=== PATIENT | male | born 1955 | race African-American/Black ===

== ENCOUNTER 2019-10-16 13:13 | Inpatient (IN) | payer OTHER ==
[2019-10-16 14:42] VITALS: BMI 19.3
--- NOTE | 2019-10-16 18:02 | HP ---
CIWA Score Nausea/Vomitin-No Nausea/No Vomiting Muscle Tremors: 1-None Visible, but [place] Anxiety: 1-Mildly Anxious Agitation: 0-Normal Activity Paroxysmal Sweats: 3 (Increased facial moisture) Orientation: 0-Oriented Tacttile Disturbances: 0-None Auditory Disturbances: 0-None Visual Disturbances: 0-None Headache: 0-None Present CIWA-Ar Total Score: 5 - Admission Criteria OASAS Guidelines: Admission for Medically Managed Detox: Requires at least one of the followin. CIWA greater than 12 2. Seizures within the past 24 hours 3. Delirium tremens within the past 24 hours 4. Hallucinations within the past 24 hours 5. Acute intervention needed for co occurring medical disorder 6. Acute intervention needed for co occurring psychiatric disorder 7. Severe withdrawal that cannot be handled at a lower level of care (continued vomiting, continued diarrhea, abnormal vital signs) requiring intravenous medication and/or fluids 8. Patient presents the following: Seizures, delirium tremens or hallucinations in the past 12 hours (Seen on 10/15/19 in [facility] ED for seizures.) Admission Criteria Met: Admission criteria met Admission ROS S - [facility] Chief Complaint: I was sent here because I drink alcohol. Allergies/Adverse Reactions: Allergies Allergy/AdvReac Type Severity Reaction Status Date / Time No Known Allergies Allergy Verified 10/16/19 14:36 History of Present Illness: 63 yo presents w/ hx alcohol use disorder for detox after being treated at [facility] for seizures. No hx 'regular falling' when sober. States falls when drink. Alcohol use began at age 18. Drinks daily. Drinks 2-4 Nips vodka and 2-3 24 oz beers. States "Starts getting sick and disoriented and an attitude change" when goes for 1 day w/o drinking. Last drink 10/15/19. Nicotine use began at age 15. Currently smokes 1/2 - 1 PPD. Denies illicit substance use. PCP@ [facility] is Dr. Rasmussen. PMHx: Seizures; Low Blood Pressure. MHHx: Intermittent Depression. Denies thoughts of harming self or others. SHx: Domiciled. Unemployed. Denies legal issues. Search Terms: Marbin Nelson, 1955 Search Date: 10/16/2019 06:02:07 PM The Drug Utilization Report below displays all of the controlled substance prescriptions, if any, that your patient has filled in the last twelve months. The information displayed on this report is compiled from pharmacy submissions to the Department, and accurately reflects the information as submitted by the pharmacies. This report was requested by: Enriqueta Duarte | Reference #: [id number] There are no results for the search terms that you entered. Exam Limitations: No Limitations - Ebola screening Have you traveled outside of the country in the last 21 days: No Have you had contact with anyone from an Ebola affected area: No Have you been sick,other than usual withdrawal symptoms: No Do you have a fever: No - Review of Systems Constitutional: Chills, Changes in sleep (Difficulty falling asleep), Weight Stable EENT: reports: Blurred Vision Respiratory: reports: No Symptoms reported Cardiac: reports: No Symptoms Reported GI: reports: Diarrhea (soft, watery light brown yesterday x 2.) : reports: No Symptoms Reported Musculoskeletal: reports: Joint Swelling (Achy knee and leg pain. Legs don't feel steady) Integumentary: reports: No Symptoms Reported Neuro: reports: Seizure (Since age 25. Has an aura when immediately about to have a seizure.), Tremors Endocrine: reports: Increased Thirst Hematology: reports: Anemia ("Thin blood") Psychiatric: reports: Judgement Intact, Orientated x3, Anxious, Depressed ( Denies thoughts of harming self or others.) Patient History - PPD History Previous Implant?: Yes Documented Results: Negative w/o proof Implanted On Prior [facility] Admission?: No PPD to be Administered?: Yes - Smoking Cessation Smoking history: Current every day smoker Have you smoked in the past 12 months: Yes Aproximately how many cigarettes per day: 10 Hx Chewing Tobacco Use: No Initiated information on smoking cessation: Yes 'Breaking Loose' booklet given: 10/16/19 - Substance & Tx. History Hx Alcohol Use: Yes Hx Substance Use: Yes Substance Use Type: Alcohol Hx Substance Use Treatment: No - Substances abused Alcohol Substance route: Oral Frequency: Daily Amount used: 2-3 NIPS OF VODKA, 3 (24 ounces) cans of beer Age of first use: 18 Date of last use: 10/15/19 Admission Physical Exam BHS - Vital Signs Vital Signs: Vital Signs - 24 hr 10/16/19 14:31 Temperature 98.1 F Pulse Rate 79 Respiratory 18 Rate Blood Pressure 125/67 - Physical General Appearance: Yes: No Apparent Distress, Thin, Sweating (Increased facial moisture) HEENTM: Yes: EOMI, Hearing grossly Normal, Normocephalic, Normal Voice, MARYLU, Pharynx Normal, Other (Dry lips and mucous membranes) Respiratory: Yes: Lungs Clear, Normal Breath Sounds, No Respiratory Distress Neck: Yes: No masses,lesions,Nodules, Supple Breast: Yes: Breast Exam Deferred Cardiology: Yes: Regular Rhythm, Regular Rate, S1, S2 Abdominal: Yes: Normal Bowel Sounds, Non Tender, Flat, Soft Genitourinary: Yes: Within Normal Limits Back: Yes: Normal Inspection Musculoskeletal: Yes: full range of Motion, Joint Stiffness (@ knees. 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 intact, Fully Oriented, Alert, Motor Strength 5/5 Integumentary: Yes: Normal Color, Dry (Very dry skin), Warm, Other (Increased facial moisture) Lymphatic: Yes: Within Normal Limits Cleared for Admission S - Detox or Rehab [facility] Level of Care: Medically Managed Detox Regimen/Protocol: Valium Claeared for Rehab Admission: No Breathalyzer - Breathalyzer Breathalyzer: 0 Urine Drug Screen - Test Device Lot number: [id number] Expiration date: 06/10/21 - Control Is test valid?: Yes - Results Drug screen NEGATIVE: No Urine drug screen results: BAR-Barbiturates Inpatient Rehab Admission - Rehab Decision to Admit Inpatient rehab admission?: No
[2019-10-16] MEDS ORDERED: diazePAM 5 MG TABLET PO PRN ×2 (18:26→18:45)
[2019-10-16] MEDS ORDERED: diazePAM 5 MG TABLET PO ONE ×2 (18:26→18:46)
[2019-10-16] MEDS ORDERED: MAGNESIUM HYDROX 2400MG/30ML ORAL SUSPENSION 30 ML CUP PO PRN (18:27)
[2019-10-16] MEDS ORDERED: MAGNESIUM CITRATE 300 ML BOTTLE PO PRN (18:27)
[2019-10-16] MEDS ORDERED: IBUPROFEN 400 MG TABLET (FP) PO PRN (18:27)
[2019-10-16] MEDS ORDERED: ACETAMINOPHEN 325 MG TABLET (FP) PO PRN ×2 (18:27)
[2019-10-16] MEDS ORDERED: MAG HYDROX/AL HYDROX/SIMETH 30 ML UNIT-DOSE CUP PO PRN (18:27)
[2019-10-16] MEDS ORDERED: MELATONIN 5 MG TABLETS PO PRN (18:27)
[2019-10-16] MEDS ORDERED: BISMUTH SUBSALICYLATE 524 MG/30 ML UD PO PRN (18:27)
[2019-10-16] MEDS ORDERED: NICOTINE POLACRILEX 2 MG GUM BUC PRN (18:27)
[2019-10-16] MEDS ORDERED: MENTHOL/PHENOL 1 EACH UD MM PRN (18:27)
[2019-10-16] MEDS: diazePAM 5 MG TABLET PO SCH (22:25)
[2019-10-16] MEDS: THIAMINE HCL 100 MG TABLET (FP) PO SCH (22:25)
[2019-10-17] MEDS: diazePAM 5 MG TABLET PO SCH ×3 (06:54→22:41)
[2019-10-17] MEDS: levETIRAcetam 500 MG TABLET (FP) PO SCH (10:19)
[2019-10-17] MEDS: PRENATAL VITAMINS W/ FOLIC ACID TABLET (FP) PO SCH (10:19)
[2019-10-17] MEDS: PHENYTOIN NA EXTENDED 100 MG CAPSULE (FP) PO SCH (10:19)
[2019-10-17] MEDS: NICOTINE 14 MG/24 HOURS TOPICAL PATCH TD SCH (10:19)
[2019-10-17 10:55] LABS: ALBUMIN 3.5 g/dl (3.4-5.0); BILIRUBIN,TOTAL 0.4 mg/dL (0.2-1); BLOOD UREA NITROGEN 5.2 mg/dL (7-18); CALCIUM 8.7 mg/dL (8.5-10.1); CREATININE 0.7 mg/dL (0.55-1.3); POTASSIUM 4.1 mmol/L (3.5-5.1); TOT PROT 6.7 g/dl (6.4-8.2)
[2019-10-17 11:36] LABS: HEMATOCRIT 35.2 % (35.4-49); HEMOGLOBIN 11.8 GM/dL (11.7-16.9); MCH 34.2 pg (25.7-33.7); MCHC 33.6 g/dl (32.0-35.9); MEAN CELL VOLUME 101.9 fl (80-96); MEAN PLT VOLUME 8.3 fl (7.5-11.1); PLATELET COUNT 206 K/MM3 (134-434); RBC 3.45 M/mm3 (4.00-5.60); RDW 13.3 % (11.9-15.9); WHITE BLOOD COUNT 6.4 K/mm3 (4.0-10.0)
[2019-10-17] MEDS ORDERED: PNEUMOC 13-VAL CONJ-DIP CRM/PF 0.5 ML DISP.SYRIN IM ONE (12:00)
[2019-10-17] MEDS ORDERED: FLU VACCINE QUAD 60 MCG/0.5 ML (MDV 19-20) IM ONE (12:00)
--- NOTE | 2019-10-17 15:15 | PN ---
S CIWA - CIWA Score Nausea/Vomitin-No Nausea/No Vomiting Muscle Tremors: 2 Anxiety: 1-Mildly Anxious Agitation: 0-Normal Activity Paroxysmal Sweats: No Perspiration Orientation: 0-Oriented Tacttile Disturbances: 0-None Auditory Disturbances: 1-Very Mild Visual Disturbances: 2-Mild Sensitivity Headache: 0-None Present CIWA-Ar Total Score: 6 BHS Progress Note (SOAP) Subjective: Sweating, Tremors. Appetite slowly improving since time of admission. Objective: PATIENT A & O X 3. IN NO ACUTE DISTRESS. 10/17/19 15:16 Vital Signs Temperature 98.2 F 10/17/19 13:26 Pulse Rate 95 H 10/17/19 13:26 Respiratory Rate 18 10/17/19 13:26 Blood Pressure 129/74 10/17/19 13:26 O2 Sat by Pulse Oximetry (%) Laboratory Tests 10/17/19 10/17/19 10/17/19 07:40 07:40 07:40 WBC 6.4 RBC 3.45 L Hgb 11.8 Hct 35.2 L MCV 101.9 H MCH 34.2 H MCHC 33.6 RDW 13.3 Plt Count 206 MPV 8.3 Sodium 136 Potassium 4.1 Chloride 102 Carbon Dioxide 27 Anion Gap 7 L BUN 5.2 L Creatinine 0.7 Est GFR (CKD-EPI)AfAm 116.40 Est GFR (CKD-EPI)NonAf 100.43 Random Glucose 105 Calcium 8.7 Total Bilirubin 0.4 AST 42 H ALT 24 Alkaline Phosphatase 209 H Total Protein 6.7 Albumin 3.5 Phenytoin 7.9 RPR Titer 10/17/19 07:40 WBC RBC Hgb Hct MCV MCH MCHC RDW Plt Count MPV Sodium Potassium Chloride Carbon Dioxide Anion Gap BUN Creatinine Est GFR (CKD-EPI)AfAm Est GFR (CKD-EPI)NonAf Random Glucose Calcium Total Bilirubin AST ALT Alkaline Phosphatase Total Protein Albumin Phenytoin RPR Titer Nonreactive LABS NOTED. Assessment: 10/17/19 15:16 WITHDRAWAL SYMPTOMS. ANEMIA. ELEVATED AST LEVEL. ELEVATED AP LEVEL. 10/17/19 15:18 Plan: CONTINUE DETOX. PATIENT IS CURRENTLY RECEIVING DAILY MVI CONTAINING B VITAMINS AND IRON WHILE ADMITTED FOR DETOX. REPEAT AP LEVEL ORDERED FOR TOMORROW.
[2019-10-17] MEDS: THIAMINE HCL 100 MG TABLET (FP) PO SCH (22:41)
[2019-10-18] MEDS: diazePAM 5 MG TABLET PO SCH ×2 (05:44→19:04)
[2019-10-18] MEDS: levETIRAcetam 500 MG TABLET (FP) PO SCH (10:10)
[2019-10-18] MEDS: PHENYTOIN NA EXTENDED 100 MG CAPSULE (FP) PO SCH (10:10)
[2019-10-18] MEDS: NICOTINE 14 MG/24 HOURS TOPICAL PATCH TD SCH (10:10)
[2019-10-18] MEDS: PRENATAL VITAMINS W/ FOLIC ACID TABLET (FP) PO SCH (10:10)
--- NOTE | 2019-10-18 13:39 | PN ---
S CIWA - CIWA Score Nausea/Vomitin-No Nausea/No Vomiting Muscle Tremors: None Anxiety: 2 Agitation: 2 Paroxysmal Sweats: No Perspiration Orientation: 0-Oriented Tacttile Disturbances: 0-None Auditory Disturbances: 0-None Visual Disturbances: 0-None Headache: 0-None Present CIWA-Ar Total Score: 4 BHS Progress Note (SOAP) Subjective: Interrupted sleep Objective: 10/18/19 13:39 Last Vital Signs Temp Pulse Resp BP Pulse Ox 98.2 F 100 H 16 112/65 10/18/19 10:00 10/18/19 10:00 10/18/19 10:00 10/18/19 10:00 Laboratory Tests 10/17/19 10/17/19 10/17/19 07:40 07:40 07:40 WBC 6.4 RBC 3.45 L Hgb 11.8 Hct 35.2 L MCV 101.9 H MCH 34.2 H MCHC 33.6 RDW 13.3 Plt Count 206 MPV 8.3 Sodium 136 Potassium 4.1 Chloride 102 Carbon Dioxide 27 Anion Gap 7 L BUN 5.2 L Creatinine 0.7 Est GFR (CKD-EPI)AfAm 116.40 Est GFR (CKD-EPI)NonAf 100.43 Random Glucose 105 Calcium 8.7 Total Bilirubin 0.4 AST 42 H ALT 24 Alkaline Phosphatase 209 H Total Protein 6.7 Albumin 3.5 Phenytoin 7.9 RPR Titer 10/17/19 10/18/19 07:40 07:50 WBC RBC Hgb Hct MCV MCH MCHC RDW Plt Count MPV Sodium Potassium Chloride Carbon Dioxide Anion Gap BUN Creatinine Est GFR (CKD-EPI)AfAm Est GFR (CKD-EPI)NonAf Random Glucose Calcium Total Bilirubin AST ALT Alkaline Phosphatase 182 H Total Protein Albumin Phenytoin RPR Titer Nonreactive Labs reviewed: alk phos 182 >> 209, AST 42 (mildly elevated) Assessment: 10/18/19 13:41 Withdrawal sxs Noted with elevated LFTs Plan: Continue detox Encouraged PO water intake Elevated LFTs (AST, Alk phos): most likely due to chronic alcoholism, alk phos trending downward, encouraged abstinence from substance use, follow up with PCP for monitoring
[2019-10-18] MEDS: THIAMINE HCL 100 MG TABLET (FP) PO SCH (22:33)
[2019-10-19] MEDS ORDERED: diazePAM 5 MG TABLET PO ONE (06:00)
--- NOTE | 2019-10-19 09:19 | DS ---
[facility] Detox Discharge Summary Admission Date: 10/16/19 Discharge Date: 10/19/19 - History Present History: Alcohol Dependence - Physical Exam Results Vital Signs: Vital Signs Temperature 98.2 F 10/19/19 08:18 Pulse Rate 70 10/19/19 08:18 Respiratory Rate 18 10/19/19 08:18 Blood Pressure 119/56 L 10/19/19 08:18 O2 Sat by Pulse Oximetry (%) Pertinent Admission Physical Exam Findings: pt arrived in withdrawals Vital Signs Temperature 98.2 F 10/19/19 08:18 Pulse Rate 70 10/19/19 08:18 Respiratory Rate 18 10/19/19 08:18 Blood Pressure 119/56 L 10/19/19 08:18 O2 Sat by Pulse Oximetry (%) Laboratory Tests 10/17/19 10/17/19 10/17/19 07:40 07:40 07:40 WBC 6.4 RBC 3.45 L Hgb 11.8 Hct 35.2 L MCV 101.9 H MCH 34.2 H MCHC 33.6 RDW 13.3 Plt Count 206 MPV 8.3 Sodium 136 Potassium 4.1 Chloride 102 Carbon Dioxide 27 Anion Gap 7 L BUN 5.2 L Creatinine 0.7 Est GFR (CKD-EPI)AfAm 116.40 Est GFR (CKD-EPI)NonAf 100.43 Random Glucose 105 Calcium 8.7 Total Bilirubin 0.4 AST 42 H ALT 24 Alkaline Phosphatase 209 H Total Protein 6.7 Albumin 3.5 Phenytoin 7.9 RPR Titer 10/17/19 10/18/19 07:40 07:50 WBC RBC Hgb Hct MCV MCH MCHC RDW Plt Count MPV Sodium Potassium Chloride Carbon Dioxide Anion Gap BUN Creatinine Est GFR (CKD-EPI)AfAm Est GFR (CKD-EPI)NonAf Random Glucose Calcium Total Bilirubin AST ALT Alkaline Phosphatase 182 H Total Protein Albumin Phenytoin RPR Titer Nonreactive today pt is aaox3 ambulating no acute distress no s/s of withdrawal - Treatment Hospital Course: Detox Protocol Followed, Detoxed Safely, Responded well, Discharged Condition Good, Rehab Referral Accepted Patient has Accepted a Rehab Referral to: pt referred to inpatient rehab - Medication Discharge Medications: Ambulatory Orders Phenytoin Na Extended [Dilantin -] 300 mg PO DAILY 10/16/19 levETIRAcetam [Keppra -] 500 mg PO DAILY 10/16/19 - Diagnosis (1) Alcohol dependence with withdrawal, uncomplicated Current Visit: Yes Status: Chronic (2) Anemia Current Visit: Yes Status: Chronic (3) Elevated alkaline phosphatase level Current Visit: Yes Status: Acute (4) Elevated aspartate aminotransferase level Current Visit: Yes Status: Acute - AMA Did Patient Leave Against Medical Advice: No
[2019-10-19] MEDS: PRENATAL VITAMINS W/ FOLIC ACID TABLET (FP) PO SCH (10:38)
[2019-10-19] MEDS: levETIRAcetam 500 MG TABLET (FP) PO SCH (10:42)
[2019-10-19] MEDS: PHENYTOIN NA EXTENDED 100 MG CAPSULE (FP) PO SCH (10:42)
[2019-10-19] MEDS: NICOTINE 14 MG/24 HOURS TOPICAL PATCH TD SCH (10:50)
[2019-10-19 17:16] VITALS: BP 120/58; PULSE 77; TEMP 99.1
== END 2019-10-19 19:07 | disposition other institution (70) | DRG 775 ==
LOC: YASAS 13:13 → Y6N 19:01
PROVIDERS: ADMIT Allergy & Immunology; ATTEND Allergy & Immunology
PROC: HZ2ZZZZ Detoxification Services for Substance Abuse Treatment (ICD-10-PCS; principal; 2019-10-16)
DX: F10.230 Alcohol dependence with withdrawal, uncomplicated (principal); F17.210 Nicotine dependence, cigarettes, uncomplicated; G40.909 Epilepsy, unspecified, not intractable, without status epilepticus; D64.9 Anemia, unspecified; L85.3 Xerosis cutis; R94.5 Abnormal results of liver function studies; R26.89 Other abnormalities of gait and mobility; M25.662 Stiffness of left knee, not elsewhere classified; M25.661 Stiffness of right knee, not elsewhere classified
CPT/HCPCS: 36415; 80053; 80177; 80185; 84075; 85027; 86593; 90670; G0008; G0009; Q2036

== ENCOUNTER 2019-10-19 20:08 | Inpatient (IN) | payer OTHER ==
--- NOTE | 2019-10-19 22:32 | HP ---
[facility] Rehab Assess/Revision - Admission History Admitted to Rehab from: [facility] Date of Admission to Rehab: 10/19/2019 - Findings Detox History & Physical reviewed: Yes Concur with findings: Yes Inpatient Rehab Admission - Rehab Decision to Admit Inpatient rehab admission?: Yes - Initial Determination Are CD services needed?: Yes Free of communicable disease: Yes Not in need of hospitalization: Yes - Rehab Admission Criteria Previous failed treatment: Yes Poor recovery environment: Yes Comorbidities: Yes Lacks judgement: No Patient is meeting Inpatient Rehab admission criteria:: Yes
[2019-10-19] MEDS ORDERED: ACETAMINOPHEN 325 MG TABLET (FP) PO PRN (22:33)
[2019-10-19] MEDS ORDERED: P-EPHED 60MG/TRIPROLIDI 2.5MG TABLET PO PRN (22:33)
[2019-10-19] MEDS ORDERED: hydrOXYzine PAMOATE 25 MG CAPSULE (FP) PO PRN (22:33)
[2019-10-19] MEDS ORDERED: MENTHOL/PHENOL 1 EACH UD MM PRN (22:33)
[2019-10-19] MEDS ORDERED: MAGNESIUM CITRATE 300 ML BOTTLE PO PRN (22:33)
[2019-10-19] MEDS ORDERED: IBUPROFEN 400 MG TABLET (FP) PO PRN (22:33)
[2019-10-19] MEDS ORDERED: LOPERAMIDE HCL 2 MG CAPSULE PO PRN (22:33)
[2019-10-19] MEDS ORDERED: MAGNESIUM HYDROX 2400MG/30ML ORAL SUSPENSION 30 ML CUP PO PRN (22:33)
[2019-10-19] MEDS ORDERED: guaiFENesin 200 MG/10 ML 10 ML UNIT-DOSE CUPS PO PRN (22:33)
[2019-10-19] MEDS ORDERED: MAG HYDROX/AL HYDROX/SIMETH 30 ML UNIT-DOSE CUP PO PRN (22:33)
[2019-10-19] MEDS ORDERED: NICOTINE POLACRILEX 2 MG GUM BUC PRN (22:33)
[2019-10-20] MEDS: PHENYTOIN NA EXTENDED 100 MG CAPSULE (FP) PO SCH (10:42)
[2019-10-20] MEDS: PRENATAL VITAMINS W/ FOLIC ACID TABLET (FP) PO SCH (10:42)
[2019-10-20] MEDS: levETIRAcetam 500 MG TABLET (FP) PO SCH (10:42)
[2019-10-20] MEDS: NICOTINE 14 MG/24 HOURS TOPICAL PATCH TD SCH (10:43)
--- NOTE | 2019-10-20 13:13 | PN ---
[facility] Progress Note Note: Pt is a 63 y/o male with a hx of alcohol and crack dependence admitted to rehab from [address] [place] [address] yesterday. PMHx;Seizure disorder,Hypotension,Anemia,and uses cane for ambulation. Ppsych Hx:Denies Pt reports he has primary care with Dr. Weems at [facility]. Vital Signs - 24 hr 10/19/19 10/19/19 10/20/19 20:30 22:00 01:12 Temperature 98.1 F 97.8 F Pulse Rate 71 78 Respiratory 16 16 18 Rate Blood Pressure 117/75 123/79 10/20/19 10/20/19 03:30 07:54 Temperature 97.6 F Pulse Rate 76 Respiratory 18 18 Rate Blood Pressure 126/74 Alert o x 3 nad oob ambulating with cane visibly on the unit. Repeat EKG(orderd from detox unit) sinus Bradycardia HR=58 otherwise Normal ECG A/P New rehab pt s/p detox maintain safety increase po fluids seizure precautions
--- NOTE | 2019-10-20 14:30 | EKG ---
Test Reason : Blood Pressure : / mmHG Vent. Rate : 058 BPM Atrial Rate : 058 BPM P-R Int : 186 ms QRS Dur : 084 ms QT Int : 404 ms P-R-T Axes : 078 066 077 degrees QTc Int : 396 ms SINUS BRADYCARDIA OTHERWISE NORMAL ECG NO PREVIOUS ECGS AVAILABLE Confirmed by MD Alpesh, Ferny ([id number]) on 10/20/2019 2:30:16 PM Referred By: EFRA Confirmed By:Ferny Betts MD
[2019-10-20] MEDS: MELATONIN 5 MG TABLETS PO PRN (21:49)
[2019-10-20] MEDS: THIAMINE HCL 100 MG TABLET (FP) PO SCH (21:49)
[2019-10-21] MEDS: levETIRAcetam 500 MG TABLET (FP) PO SCH (10:14)
[2019-10-21] MEDS: NICOTINE 14 MG/24 HOURS TOPICAL PATCH TD SCH (10:14)
[2019-10-21] MEDS: PHENYTOIN NA EXTENDED 100 MG CAPSULE (FP) PO SCH (10:14)
[2019-10-21] MEDS: PRENATAL VITAMINS W/ FOLIC ACID TABLET (FP) PO SCH (10:14)
[2019-10-21] MEDS: MELATONIN 5 MG TABLETS PO PRN (21:49)
[2019-10-21] MEDS: THIAMINE HCL 100 MG TABLET (FP) PO SCH (21:49)
[2019-10-22] MEDS: PHENYTOIN NA EXTENDED 100 MG CAPSULE (FP) PO SCH (11:13)
[2019-10-22] MEDS: levETIRAcetam 500 MG TABLET (FP) PO SCH (11:13)
[2019-10-22] MEDS: PRENATAL VITAMINS W/ FOLIC ACID TABLET (FP) PO SCH (11:13)
[2019-10-22] MEDS: NICOTINE 14 MG/24 HOURS TOPICAL PATCH TD SCH (11:13)
[2019-10-22] MEDS: MELATONIN 5 MG TABLETS PO PRN (21:20)
[2019-10-22] MEDS: THIAMINE HCL 100 MG TABLET (FP) PO SCH (21:20)
[2019-10-23] MEDS: PRENATAL VITAMINS W/ FOLIC ACID TABLET (FP) PO SCH (10:45)
[2019-10-23] MEDS: levETIRAcetam 500 MG TABLET (FP) PO SCH (10:45)
[2019-10-23] MEDS: NICOTINE 14 MG/24 HOURS TOPICAL PATCH TD SCH (10:45)
[2019-10-23] MEDS: PHENYTOIN NA EXTENDED 100 MG CAPSULE (FP) PO SCH (10:45)
[2019-10-23 12:40] LABS: HEMATOCRIT 36.7 % (35.4-49); HEMOGLOBIN 12.5 GM/dL (11.7-16.9); MCH 34.2 pg (25.7-33.7); MCHC 34.1 g/dl (32.0-35.9); MEAN CELL VOLUME 100.4 fl (80-96); PLATELET COUNT 266 K/MM3 (134-434); RBC 3.66 M/mm3 (4.00-5.60); RDW 13.8 % (11.9-15.9); WHITE BLOOD COUNT 6.1 K/mm3 (4.0-10.0)
[2019-10-23 12:46] LABS: BILIRUBIN,TOTAL 0.3 mg/dL (0.2-1); BLOOD UREA NITROGEN 7.9 mg/dL (7-18); CALCIUM 9.2 mg/dL (8.5-10.1); CREATININE 0.7 mg/dL (0.55-1.3); POTASSIUM 4.1 mmol/L (3.5-5.1); TOT PROT 7.7 g/dl (6.4-8.2)
[2019-10-23] MEDS: MELATONIN 5 MG TABLETS PO PRN (21:07)
[2019-10-23] MEDS: THIAMINE HCL 100 MG TABLET (FP) PO SCH (21:07)
[2019-10-24] MEDS: PHENYTOIN NA EXTENDED 100 MG CAPSULE (FP) PO SCH (10:12)
[2019-10-24] MEDS: PRENATAL VITAMINS W/ FOLIC ACID TABLET (FP) PO SCH (10:12)
[2019-10-24] MEDS: NICOTINE 14 MG/24 HOURS TOPICAL PATCH TD SCH (10:13)
[2019-10-24] MEDS: levETIRAcetam 500 MG TABLET (FP) PO SCH (10:13)
[2019-10-24] MEDS: THIAMINE HCL 100 MG TABLET (FP) PO SCH (23:22)
[2019-10-25] MEDS: levETIRAcetam 500 MG TABLET (FP) PO SCH (10:19)
[2019-10-25] MEDS: PHENYTOIN NA EXTENDED 100 MG CAPSULE (FP) PO SCH (10:19)
[2019-10-25] MEDS: NICOTINE 14 MG/24 HOURS TOPICAL PATCH TD SCH (10:19)
[2019-10-25] MEDS: PRENATAL VITAMINS W/ FOLIC ACID TABLET (FP) PO SCH (10:19)
[2019-10-25] MEDS: THIAMINE HCL 100 MG TABLET (FP) PO SCH (21:51)
[2019-10-25] MEDS: MELATONIN 5 MG TABLETS PO PRN (21:51)
[2019-10-26] MEDS: levETIRAcetam 500 MG TABLET (FP) PO SCH (10:23)
[2019-10-26] MEDS: PHENYTOIN NA EXTENDED 100 MG CAPSULE (FP) PO SCH (10:23)
[2019-10-26] MEDS: PRENATAL VITAMINS W/ FOLIC ACID TABLET (FP) PO SCH (10:23)
[2019-10-26] MEDS: NICOTINE 14 MG/24 HOURS TOPICAL PATCH TD SCH (10:23)
[2019-10-26] MEDS: THIAMINE HCL 100 MG TABLET (FP) PO SCH (21:47)
[2019-10-26] MEDS: MELATONIN 5 MG TABLETS PO PRN (21:47)
--- NOTE | 2019-10-27 00:28 | PN ---
[facility] Progress Note Note: Patient had a seizure that was witnessed by a staff, Ms. Rossana Foley. She reports that the seizure was tonic- clonic which lasted about 3-5 minutes with patient biting his tongue. Patient has medical history of seizures and was admitted to [facility] for seizures prior to his admission. He is on Dilantin and Levetiracetam with levels at Dilantin 7.9 and Levetiracetam 5.7 mcg /ML on 10/17/2019. Patient is to be transferred to emergency room for further evauation. Endorsed to Dr. Natty Hernandez Vital Signs - 24 hr 10/27/19 10/27/19 10/27/19 00:05 00:10 00:25 Pulse Rate 92 H 87 83 Respiratory 16 16 16 Rate Blood Pressure 162/96 104/74 133/67 General Appearance: Somnolence, Apparent Distress. . HEENT: Norphocephalic, no lesion noted. Eyelids closed tightly. Nasal congestion, hearing normal. Tongue bite with bleeding noted Neck: Supple. No clear JVD. No bruits heard bilaterally Respiratory/Chest: Lungs Clear, Normal Breath Sounds. Respiratory Distress, Crackles, Rales, Rhonchi, Stridor, Wheezing Cardiovascular: Regular Rhythm, Regular Rate, S1, S2. Gastrointestinal/Abdominal: Normal Bowel Sounds with mild abdominal distention Extremity: Normal Capillary Refill Integumentary: Dry skin with Rash Neurologic: Disoriented and lethargic Action: Transfer patient to ER for further evaluation and treatment
--- NOTE | 2019-10-27 09:50 | PN ---
[facility] Progress Note Note: Pt was seen at the [facility] ER for Seizure episode last night and discharged this morning. Pt arrived back to [address] [place] [address] at about 9:05 A.M to continue rehab. Alert o x 3. Ambulating with steady gait. Communicating coherently and in good spirit. On review of Emergency room discharge papers, it was recommended for patient to: Patient Discharge Instructions Patient Printed Discharge Instructions: DI for Seizure Disorder -- Adult Additional Instructions: You were seen for seizure. Your labs did not show anything concerning. Your Dilantin drug level is low. You were loaded with your seizure medication Take 300mg of Dilantin at 8am and 300mg at 10am today. Start taking your regular Dilantin dose tomorrow. Come back to the ED if you continue to have seizures, worsening headache, vision change, or fevers. This provider called the ED a few minutes before 10:00 a.m to clarify above Dilantin dose instructions since pt arrived here later than the 8:00 a.m dose( pt still enroute to [facility] from [facility] and did not receive this dose). I spoke with ED Orr at the ED who instructed that pt may take the next dose at 10 a.m and resume as above from tomorrow. informed that pt was loaded with Dilantin and Keppra at the ED. P/E: Vital Signs - 24 hr 10/27/19 10/27/19 10/27/19 00:05 00:10 00:25 Temperature Pulse Rate 92 H 87 83 Respiratory 16 16 16 Rate Blood Pressure 162/96 104/74 133/67 10/27/19 09:10 Temperature 98.0 F Pulse Rate 76 Respiratory 16 Rate Blood Pressure 126/68 Cardiac:s1 s2, rrr Lungs;cta,anju. Abdomen:soft,flat,nt,+bs extremities/skin:no edema, full ROM;skin intact. A/P s/p seizure episode return from ED Maintain safety seizure precautions Dilantin 300 mg po once as directed. continue [id number] mg po daily @ 6:00 a.m and keppra 500 mg po bid from [facility] at 10:00 a.m today at time of Dilantin administration(due to possible interactions). Reviewed pt's outside pharmacy, [facility] and saw that pt has posted Rx for Keppra 500 mg po BID, last post was 09/24/19. Pt reports he has been taking it once a day not according to his doctor's order. Pt is agreeable to taking it according to the way his doctor had ordered.."morning and evening".Pt has primary care with Dr. Weems at [facility].
[2019-10-27] MEDS ORDERED: PHENYTOIN NA EXTENDED 100 MG CAPSULE (FP) PO SCH (10:04)
[2019-10-27] MEDS ORDERED: PHENYTOIN NA EXTENDED 100 MG CAPSULE (FP) PO ONE (10:15)
[2019-10-27] MEDS: PRENATAL VITAMINS W/ FOLIC ACID TABLET (FP) PO SCH (10:17)
[2019-10-27] MEDS: levETIRAcetam 500 MG TABLET (FP) PO SCH (10:20)
[2019-10-27] MEDS: NICOTINE 14 MG/24 HOURS TOPICAL PATCH TD SCH (10:20)
[2019-10-27] MEDS: PHENYTOIN NA EXTENDED 100 MG CAPSULE (FP) PO SCH (10:25)
[2019-10-27] MEDS: MELATONIN 5 MG TABLETS PO PRN (21:52)
[2019-10-27] MEDS: THIAMINE HCL 100 MG TABLET (FP) PO SCH (21:52)
[2019-10-28] MEDS: PHENYTOIN NA EXTENDED 100 MG CAPSULE (FP) PO SCH (06:27)
[2019-10-28] MEDS: levETIRAcetam 500 MG TABLET (FP) PO SCH ×2 (10:41→21:50)
[2019-10-28] MEDS: NICOTINE 14 MG/24 HOURS TOPICAL PATCH TD SCH (10:41)
[2019-10-28] MEDS: PRENATAL VITAMINS W/ FOLIC ACID TABLET (FP) PO SCH (10:41)
[2019-10-28] MEDS: MELATONIN 5 MG TABLETS PO PRN (21:50)
[2019-10-28] MEDS: THIAMINE HCL 100 MG TABLET (FP) PO SCH (21:50)
[2019-10-29] MEDS: PHENYTOIN NA EXTENDED 100 MG CAPSULE (FP) PO SCH (06:23)
[2019-10-29] MEDS: PRENATAL VITAMINS W/ FOLIC ACID TABLET (FP) PO SCH (10:54)
[2019-10-29] MEDS: levETIRAcetam 500 MG TABLET (FP) PO SCH ×2 (10:54→21:54)
[2019-10-29] MEDS: NICOTINE 14 MG/24 HOURS TOPICAL PATCH TD SCH (10:55)
[2019-10-29] MEDS: THIAMINE HCL 100 MG TABLET (FP) PO SCH (21:54)
[2019-10-29] MEDS: MELATONIN 5 MG TABLETS PO PRN (21:54)
[2019-10-30] MEDS: PHENYTOIN NA EXTENDED 100 MG CAPSULE (FP) PO SCH (06:14)
[2019-10-30] MEDS: levETIRAcetam 500 MG TABLET (FP) PO SCH ×2 (10:36→21:49)
[2019-10-30] MEDS: PRENATAL VITAMINS W/ FOLIC ACID TABLET (FP) PO SCH (10:36)
[2019-10-30] MEDS: NICOTINE 14 MG/24 HOURS TOPICAL PATCH TD SCH (10:37)
--- NOTE | 2019-10-30 15:21 | DS ---
[facility] Rehab Discharge Summary - [facility] Rehab Discharge Summary Admission Date: 10/19/19 Discharge Date: 11/02/19 - History Present History: Alcohol dependence, Cocaine dependence Additional Comments: Pt is a 63 y/o male with a hx of alcohol and crack dependence admitted to rehab from [address] [place] [address] yesterday. Pt is scheduled to discharge on Saturday11/02/19 and has been referred to [facility] for CD aftercare. Pt reports he has primary care with ?Dr. Weems(Dr. David Rasmussen) at [facility]. Pertinent Past History: PMHx;Seizure disorder, Hypotension Anemia Uses cane for ambulation. Psych Hx:Denies - Discharge Physical Exam Vital Signs: Vital Signs Temperature 98.2 F 10/30/19 07:20 Pulse Rate 83 10/30/19 07:20 Respiratory Rate 18 10/30/19 07:20 Blood Pressure 92/66 10/30/19 07:20 O2 Sat by Pulse Oximetry (%) Alert o x 3, denies s/h/i nad oob ambulating with steady gait cardiac:s1 s2,rrr lungs:cta,anju. abdomen:soft,+bs,nt,flat extremities/skin:no edema,full ROM;skin intact Pertinent Admission Physical Exam Findings: Laboratory Tests 10/23/19 10/23/19 10/29/19 08:15 08:15 10:00 WBC 6.1 RBC 3.66 L Hgb 12.5 Hct 36.7 MCV 100.4 H MCH 34.2 H MCHC 34.1 RDW 13.8 Plt Count 266 D MPV 8.0 Sodium 133 L Potassium 4.1 Chloride 98 Carbon Dioxide 28 Anion Gap 7 L BUN 7.9 Creatinine 0.7 Est GFR (CKD-EPI)AfAm 116.40 Est GFR (CKD-EPI)NonAf 100.43 Random Glucose 99 Calcium 9.2 Total Bilirubin 0.3 AST 33 ALT 28 Alkaline Phosphatase 196 H Total Protein 7.7 Albumin 4.0 Phenytoin 15.9 - Treatment Discharge Condition: Discharge condition good Hospital Course: Rehabilitated safely, responded well CD aftercare accepted During the course of this rehab treatment, pt was transferred to [facility] ED for Seizure episode, evaluated, treated and returned to complete rehab. - Medication Discharge Medications: Ambulatory Orders levETIRAcetam [Keppra -] 500 mg PO BID 10/27/19 Multivit with Iron,Minerals [Complete Senior] 1 each PO DAILY 30 Days #30 tablet 10/30/19 Phenytoin Na Extended [Dilantin -] 300 mg PO DAILY #90 capsule 10/30/19 - Medication-Assisted Treatment (MAT) Medication-Assisted Treatment (MAT): No - Discharge Instructions Diet, activity, other medical instructions: Diet:Regular Activity: oob ad adia Other medical instructions:Follow up with your primary care provider for medical management within 1 week after discharge. Follow up with CD aftercare as scheduled at [facility]. - Diagnosis (1) Alcohol use disorder Current Visit: Yes Status: Chronic (2) Tonic clonic seizures Current Visit: Yes Status: Chronic (3) Anemia Current Visit: Yes Status: Chronic Qualifiers: Anemia type: unspecified type Qualified Code(s): D64.9 - Anemia, unspecified - Follow-up Referral Minutes to complete discharge: 20 - AMA Did Patient Leave Against Medical Advice: No Additional Comments: Spoke with pt's [facility] at [phone] who confirmed that pt has 2 refills of the keppra but needs dilantin Rx. 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
[2019-10-30] MEDS: MELATONIN 5 MG TABLETS PO PRN (21:49)
[2019-10-30] MEDS: THIAMINE HCL 100 MG TABLET (FP) PO SCH (21:49)
[2019-10-31] MEDS: PHENYTOIN NA EXTENDED 100 MG CAPSULE (FP) PO SCH (06:24)
[2019-10-31] MEDS: PRENATAL VITAMINS W/ FOLIC ACID TABLET (FP) PO SCH (10:50)
[2019-10-31] MEDS: levETIRAcetam 500 MG TABLET (FP) PO SCH ×2 (10:50→21:43)
[2019-10-31] MEDS: NICOTINE 14 MG/24 HOURS TOPICAL PATCH TD SCH (10:50)
[2019-10-31] MEDS: THIAMINE HCL 100 MG TABLET (FP) PO SCH (21:43)
[2019-10-31] MEDS: MELATONIN 5 MG TABLETS PO PRN (21:43)
[2019-11-01] MEDS: PHENYTOIN NA EXTENDED 100 MG CAPSULE (FP) PO SCH (06:15)
[2019-11-01] MEDS: NICOTINE 14 MG/24 HOURS TOPICAL PATCH TD SCH (09:57)
[2019-11-01] MEDS: levETIRAcetam 500 MG TABLET (FP) PO SCH ×2 (09:57→21:46)
[2019-11-01] MEDS: PRENATAL VITAMINS W/ FOLIC ACID TABLET (FP) PO SCH (09:57)
[2019-11-01] MEDS: THIAMINE HCL 100 MG TABLET (FP) PO SCH (21:46)
[2019-11-01] MEDS: MELATONIN 5 MG TABLETS PO PRN (21:46)
[2019-11-02] MEDS: PHENYTOIN NA EXTENDED 100 MG CAPSULE (FP) PO SCH (06:50)
[2019-11-02 07:58] VITALS: BP 133/70; PULSE 95; TEMP 97.5
--- NOTE | 2019-11-02 09:05 | PN ---
[facility] Progress Note Note: Patient scheduled for discharge today. Patient is medically stable and denies SI /HI. Laboratory Tests 10/23/19 10/23/19 10/29/19 08:15 08:15 10:00 WBC 6.1 RBC 3.66 L Hgb 12.5 Hct 36.7 MCV 100.4 H MCH 34.2 H MCHC 34.1 RDW 13.8 Plt Count 266 D MPV 8.0 Sodium 133 L Potassium 4.1 Chloride 98 Carbon Dioxide 28 Anion Gap 7 L BUN 7.9 Creatinine 0.7 Est GFR (CKD-EPI)AfAm 116.40 Est GFR (CKD-EPI)NonAf 100.43 Random Glucose 99 Calcium 9.2 Total Bilirubin 0.3 AST 33 ALT 28 Alkaline Phosphatase 196 H Total Protein 7.7 Albumin 4.0 Phenytoin 15.9 Vital Signs Temperature 97.5 F L 11/02/19 07:57 Pulse Rate 95 H 11/02/19 07:57 Respiratory Rate 18 11/02/19 07:57 Blood Pressure 133/70 11/02/19 07:57 O2 Sat by Pulse Oximetry (%) A/P: alcohol/crack cocaine dependence. Stable for discharge this morning
[2019-11-02] MEDS: levETIRAcetam 500 MG TABLET (FP) PO SCH (09:15)
[2019-11-02] MEDS: NICOTINE 14 MG/24 HOURS TOPICAL PATCH TD SCH (09:15)
[2019-11-02] MEDS: PRENATAL VITAMINS W/ FOLIC ACID TABLET (FP) PO SCH (09:15)
== END 2019-11-02 10:50 | disposition home or self-care (01) | DRG 772 ==
LOC: YASAS 20:08 → Y5N 20:09
PROVIDERS: ADMIT Neuromusculoskeletal Medicine & OMM; ATTEND Neuromusculoskeletal Medicine & OMM
PROC: HZ42ZZZ Group Counseling for Substance Abuse Treatment, Cognitive-Behavioral (ICD-10-PCS; principal; 2019-10-19)
DX: F10.20 Alcohol dependence, uncomplicated (principal); D64.9 Anemia, unspecified; G40.309 Generalized idiopathic epilepsy and epileptic syndromes, not intractable, without status epilepticus
CPT/HCPCS: 36415; 80053; 80185; 85027; 93005; 93010

== ENCOUNTER 2019-10-27 01:00 | Emergency (ER) | payer OTHER ==
[2019-10-27 01:20] VITALS: BMI 20.1
--- NOTE | 2019-10-27 01:21 | PDOC ---
History of Present Illness - General Chief Complaint: Seizure Stated Complaint: SEIZURES Time Seen by Provider: 10/27/19 01:20 History Source: Patient Exam Limitations: No Limitations - History of Present Illness Initial Comments: 10/27/19 02:08 63yM w PMHx seizure, alcohol abuse presenting from [facility] w seizure. 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 Denies head trauma. Admitted on 10/16/19 for alcohol abuse, measured suboptimal keppra level. Taking keppra and dilantin for seizures. Pt does not remember incident. Currently denying headache, vision change, nausea/vomiting, chest pain, SOB. Past History - Past Medical History Allergies/Adverse Reactions: Allergies Allergy/AdvReac Type Severity Reaction Status Date / Time No Known Allergies Allergy Verified 10/27/19 01:20 Home Medications: Ambulatory Orders Phenytoin Na Extended [Dilantin -] 300 mg PO DAILY 10/16/19 levETIRAcetam [Keppra -] 500 mg PO DAILY 10/16/19 Multivit with Iron,Minerals [Complete Senior] 1 each PO DAILY 10/27/19 Asthma: No Cardiac Disorders: Yes COPD: No Diabetes: No GI Disorders: No Disorders: No HTN: No Kidney Stones: No Seizures: Yes - Psycho Social/Smoking Cessation Hx Smoking History: Current every day smoker Have you smoked in the past 12 months: Yes Number of Cigarettes Smoked Daily: 10 'Breaking Loose' booklet given: 10/16/19 Hx Alcohol Use: Yes Drug/Substance Use Hx: Yes Substance Use Type: Alcohol Hx Substance Use Treatment: Yes Review of Systems - Review of Systems Able to Perform ROS?: No (pt does not remember) *Physical Exam - Physical Exam General Appearance: Yes: Nourished, Appropriately Dressed. No: Apparent Distress HEENT: positive: EOMI, MARYLU, Normal Voice, Hearing Grossly Normal, Other (no tongue lacerations/bleeding). negative: Scleral Icterus (R), Scleral Icterus (L ), Nasal Congestion, Rhinorrhea Neck: positive: Supple. negative: Tender, Rigid Respiratory/Chest: positive: Lungs Clear, Normal Breath Sounds. negative: Chest Tender, Respiratory Distress, Crackles, Rales, Rhonchi, Stridor, Wheezing Cardiovascular: positive: Regular Rhythm, Regular Rate, S1, S2. negative: Edema , Murmur Gastrointestinal/Abdominal: positive: Normal Bowel Sounds, Soft, Distended. negative: Tender, Organomegaly, Mass Extremity: positive: Normal Capillary Refill Integumentary: positive: Normal Color, Other (no abrasions). 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 negative: Fully Oriented (oriented to name only), Normal Mood/Affect (slightly lethargic), Responsive (mildly delayed response), Numbness, Sensory Deficit ED Treatment Course - LABORATORY CBC & Chemistry Diagram: 10/27/19 03:01 10/27/19 04:45 Medical Decision Making - Medical Decision Making 10/27/19 02:08 Hgb 11.2, normal CMP, phenytoin dilantin 5.4 --- 63yM w PMHx seizure, alcohol abuse presenting from [facility] witnessed tonic- clonic seizure (tongue biting, post-ictal period) likely d/t medication under- dosing. No signs of head trauma, neuro intact. Pt became more alert/oriented, responsive over his ED stay. Loaded w 1g keppra and 400 Dilantin based on low Dilantin level. Has anemia Hgb 11.2. DC to [facility] w phenytoin loading instructions Discharge - Discharge Information Problems reviewed: Yes Clinical Impression/Diagnosis: Tonic clonic seizures Anemia Qualifiers: Anemia type: unspecified type Qualified Code(s): D64.9 - Anemia, unspecified Condition: Good Disposition: HOME - Admission No - Follow up/Referral - Patient Discharge Instructions Patient Printed Discharge Instructions: DI for Seizure Disorder -- Adult Additional Instructions: You were seen for seizure. Your labs did not show anything concerning. Your Dilantin drug level is low. You were loaded with your seizure medication Take 300mg of Dilantin at 8am and 300mg at 10am today. Start taking your regular Dilantin dose tomorrow. Come back to the ED if you continue to have seizures, worsening headache, vision change, or fevers. - Post Discharge Activity
--- NOTE | 2019-10-27 02:02 | PDOC ---
Attending Attestation - Resident Resident Name: Viviana,Emmett - ED Attending Attestation I have performed the following: I have examined & evaluated the patient, The case was reviewed & discussed with the resident, I agree w/resident's findings & plan, Exceptions are as noted - HPI HPI: 10/27/19 01:58 63 yo male BIBA from [facility] after having a witnessed tonic clonic seizure while in bed pt has h/o seizures and takes keppra and dilantin pt admitted on 10/16/19 for etoh abuse. He finished detox and now is in rehab currently post ictal 10/27/19 02:02 10/27/19 02:04 - Physicial Exam PE: 10/27/19 02:03 slender 63 yo male resting on gurney, sl lethargic but responds to simple commands head no scalp lacerations lungs cta b/l cvs [id number] abd soft neuro sl lethargic but does respond to commands and moves all extremities 10/27/19 02:05 10/27/19 02:21 - Medical Decision Making 10/27/19 02:06 plan will contact neuro,give loading dose keppra and reassess 10/27/19 02:08
[2019-10-27 03:15] LABS: BASO % 0.9 % (0-2.0); EOS % 3.5 % (0-4.5); HEMATOCRIT 32.7 % (35.4-49); HEMOGLOBIN 11.2 GM/dL (11.7-16.9); MCH 34.1 pg (25.7-33.7); MCHC 34.2 g/dl (32.0-35.9); MEAN CELL VOLUME 99.6 fl (80-96); MEAN PLT VOLUME 7.7 fl (7.5-11.1); MONO % 18.5 % (3.8-10.2); NEUT % 60.1 % (42.8-82.8); PLATELET COUNT 317 K/MM3 (134-434); RBC 3.28 M/mm3 (4.00-5.60); RDW 13.6 % (11.9-15.9); WHITE BLOOD COUNT 8.2 K/mm3 (4.0-10.0)
[2019-10-27] MEDS ORDERED: levETIRAcetam 500 MG TABLET (FP) PO ONE ×2 (05:14→05:26)
[2019-10-27 05:29] LABS: ALBUMIN 3.6 g/dl (3.4-5.0); BILIRUBIN,TOTAL 0.2 mg/dL (0.2-1); CALCIUM 9.1 mg/dL (8.5-10.1); CREATININE 0.7 mg/dL (0.55-1.3); POTASSIUM 4.4 mmol/L (3.5-5.1); TOT PROT 7.2 g/dl (6.4-8.2)
[2019-10-27] MEDS ORDERED: PHENYTOIN 50 MG TAB.CHEW PO ONE (05:54)
[2019-10-27 07:06] VITALS: BP 136/77; PULSE 70; TEMP 97.7
== END 2019-10-27 09:00 | disposition home or self-care (01) ==
LOC: JER 01:00
DX: D64.9 Anemia, unspecified (principal); R56.9 Unspecified convulsions; F17.210 Nicotine dependence, cigarettes, uncomplicated; F10.10 Alcohol abuse, uncomplicated
CPT/HCPCS: 36415; 80053; 80177; 80185; 85025; 99284-25